=== PATIENT | female | born 1960 | race Caucasian/White ===

== ENCOUNTER → 2018-09-23 | Outpatient (REF) | payer OTHER | LOC: M SFHCLERA 10:04 | PROVIDERS: ATTEND Nurse Practitioner Family | DX: R10.9 Unspecified abdominal pain (principal) ==

== ENCOUNTER → 2019-05-05 | Outpatient (CLI) | payer OTHER ==
--- NOTE | 2019-05-05 18:41 | REP ---
Seven views cervical spine: Indication: Neck pain. Comparison: None. Findings: There is no acute fracture, subluxation or dislocation. There is no instability on the dynamic testing. Multilevel spondylitic sequelae are present most pronounced at C5/C6 and C6/C7 without severe narrowing of the spinal canal noted. The neural foramen appear patent. Impression: No acute osseous injury of the cervical spine. Electronically Signed by Geronimo Raygoza DO 05/05/2019 06:32 P
--- NOTE | 2019-05-05 19:37 | REP ---
Clinical: Left shoulder strain. Technique: Internal rotation, external rotation, and Y view of the left shoulder. Findings: Examination is essentially normal for age. Very minimal cortical irregularity at the acromioclavicular joint is appreciated. No acute fracture dislocation. Subacromial space is normal. No periarticular calcifications or loose bodies. Surrounding soft tissues are unremarkable. Impression: Age-appropriate left shoulder radiographs. Electronically Signed by Ronan Hartman MD 05/05/2019 07:28 P
== END ==
LOC: M WUC 14:30
PROVIDERS: ATTEND Physician Assistant
DX: S16.1XXA Strain of muscle, fascia and tendon at neck level, initial encounter (principal); W18.30XA Fall on same level, unspecified, initial encounter; Y92.009 Unspecified place in unspecified non-institutional (private) residence as the place of occurrence of the external cause

== ENCOUNTER → 2021-07-04 | Outpatient (REF) | LOC: M LABSMTC 09:22 | PROVIDERS: ATTEND Pediatrics | DX: Z11.52 Encounter for screening for COVID-19 (principal) ==

== ENCOUNTER → 2021-10-04 | Outpatient (CLI) | payer OTHER | LOC: M WHC 08:21 | PROVIDERS: ATTEND Family Medicine | DX: Z12.31 Encounter for screening mammogram for malignant neoplasm of breast (principal) ==

== ENCOUNTER → 2022-11-27 | Outpatient (CLI) | payer OTHER | LOC: M WUC 10:23 | PROVIDERS: ATTEND Nurse Practitioner Family | DX: M25.551 Pain in right hip (principal); M54.16 Radiculopathy, lumbar region ==

== ENCOUNTER → 2023-01-21 | Outpatient (CLI) | payer OTHER | LOC: M WHC 08:25 | PROVIDERS: ATTEND Family Medicine | DX: Z12.31 Encounter for screening mammogram for malignant neoplasm of breast (principal) ==

== ENCOUNTER → 2024-06-21 | Outpatient (CLI) | payer OTHER ==
[~2024-06-21] MED LIST: CELE1CAP99 PO; CINN500C15 PO; D 50CAP2 PO; DRON2.5C11 PO; DULO1CAP4 PO; GABA-284 PO; GINK60CA2 PO; LOSA25TA13 PO; METH-1164 PO; OMEP-173 PO; OMEP1CAP73 PO; VITATAB73 PO
== END ==
LOC: M WHC 08:21
PROVIDERS: ATTEND Internal Medicine
DX: Z12.31 Encounter for screening mammogram for malignant neoplasm of breast (principal)